=== PATIENT | female | born 1970 | race Caucasian/White ===

== ENCOUNTER 2017-06-18 09:15 | Outpatient (CLI) | payer OTHER ==
[~2017-06-18 09:15] MED LIST: Iopamidol 370 76% 100 ML VIAL ONE
--- NOTE | 2017-06-18 11:00 | CT ---
CT ABDOMEN WITH AND WITHOUT IV CONTRAST CT PELVIS WITH AND WIHTOUT IV CONTRAST: DATE: 06/18/17. HISTORY: Gross hematuria. The patient complains of back pain for 7 months. COMPARISON: None available. FINDINGS: There is a 4 mm nonobstructing calculus in the superior pole left kidney. No additional region or ur eteral calculi are seen bilaterally. A 1.3 cm hypodense lesion is seen within the superior pole of the right kidney. The attenuation coef ficient on postcontrast imaging is not consistent with a simple cyst. In addition, this lesion is no t well seen on precontrast imaging for adequate evaluation of the attenuation coefficient, although a ttenuation coefficient in the expected location is approximately 31.5 and on postcontrast imaging thi s lesion measures 47.7 Hounsfield units. A too small to characterize hypodense lesion is seen in the left kidney. There is a subcentimeter hypodense lesion also present in the mid portion of the left kidney. A 1.9 cm hypodense lesion is seen in the dome of the liver which demonstrates discontinuous nodular e nhancement on portal venous phase of imaging and completely fills in on delayed phase of imaging most suggestive of a hemangioma. There is a small subcentimeter hypodense too small to characterize lesi on within the right hepatic lobe. The lung bases, spleen, pancreas, and bilateral adrenal glands demonstrate a normal CT appearance. T he urinary bladder is incompletely distended. The mendoza of the urinary bladder do appear mildly thic kened. While cystitis could not be entirely excluded, there is no perivesicular stranding seen and f indings are probably more likely attributable to incomplete distention of the urinary bladder. There is a small amount of free fluid in the pelvis. The uterus is not visualized related to patient's provided history of a hysterectomy. IMPRESSION: 1. Small hypodense lesion within the superior pole of right kidney. There is questionable mild enha ncement, but this lesion is not adequately visualized on precontrast images for an accurate attenuati on. Urology consultation is suggested and short interval followup in [address] or MRI would b e beneficial. 2. Subcentimeter too small to characterize hypodense lesions in each kidney. 3. Nonobstructing left renal calculus. 4. The mendoza of the urinary bladder are thickened, but this is likely attributable to incomplete dis tention. 5. Hemangioma in the dome of the liver with subcentimeter too small to characterize hypodense lesion in the right hepatic lobe. 6. Hysterectomy. 7. Tiny amount of free fluid in the pelvis which is probably physiologic. POS: [facility]
== END 2017-06-18 09:16 | disposition home or self-care (01) ==
LOC: CT 09:15
PROVIDERS: ATTEND Family Medicine
DX: R31.0 Gross hematuria (principal); D18.03 Hemangioma of intra-abdominal structures; N28.89 Other specified disorders of kidney and ureter; N20.0 Calculus of kidney; N32.89 Other specified disorders of bladder; Z90.710 Acquired absence of both cervix and uterus; Z80.9 Family history of malignant neoplasm, unspecified
CPT/HCPCS: 74178

== ENCOUNTER 2017-07-09 08:09 | Outpatient (CLI) | payer OTHER ==
--- NOTE | 2017-07-09 11:16 | MMO ---
BILATERAL SCREENING MAMMOGRAM: Date: 07/09/17 HISTORY: Screening. COMPARISON: Mammograms from 2014 and 2011. This patient's mammogram was interpreted with the assistance of computer-aided detection. FINDINGS: The breasts are heterogeneously dense, which may obscure small masses. Right intramammary lymph nodes are similar. No new focal mass, microcalcifications, or architectural distortion. There are regional benign-appearing calcifications within the left breast, as well as benign calcifications within the right breast. IMPRESSION: BIRADS 2: Benign Finding(s) Continued annual mammographic screening is recommended. POS: [facility]
== END 2017-07-09 08:10 | disposition home or self-care (01) ==
LOC: SCSMAMMO 08:09
PROVIDERS: ATTEND Family Medicine
DX: Z12.31 Encounter for screening mammogram for malignant neoplasm of breast (principal)
CPT/HCPCS: 77067